=== PATIENT | female | born 1945 | race Hispanic/Latino ===

== ENCOUNTER 2017-10-25 10:55 | Outpatient (CLI) | payer MEDICARE, OTHER ==
--- NOTE | 2017-10-25 13:46 | ULT ---
VENOUS DOPPLER ULTRASOUND OF THE LEFT LOWER EXTREMITY: Date: 10/25/17 HISTORY: Pain in the left lower extremity, left leg, left knee. TECHNIQUE: Torre scale ultrasound with color flow and spectral Doppler imaging of the deep venous systems of the left lower extremity was performed. FINDINGS: There is good flow, compression, and augmentation noted in the left common femoral, femoral, deep fem oral, popliteal, posterior tibial, and greater saphenous veins. IMPRESSION: No evidence of deep venous thrombosis in the left lower extremity. POS: C
== END 2017-10-25 10:56 | disposition home or self-care (01) ==
LOC: ULT 10:55
PROVIDERS: ATTEND Family Medicine
DX: M79.605 Pain in left leg (principal)

== ENCOUNTER 2017-12-14 11:54 | Outpatient (CLI) | payer MEDICARE, OTHER ==
--- NOTE | 2017-12-14 13:02 | RAD ---
RIGHT HIP RADIOGRAPHS TWO VIEWS: 12/14/2017 PROVIDED CLINICAL HISTORY: Chronic right hip pain. FINDINGS: There is no evidence for fracture or other acute osseous abnormality. There is mild superior right h ip joint space narrowing with periarticular osteophyte formation. Alignment appears anatomic. IMPRESSION: Degenerative arthrosis of the right hip. POS: REBECCA
--- NOTE | 2017-12-14 14:11 | RAD ---
LEFT KNEE RADIOGRAPHS 4 VIEWS: DATE: 12/14/17. PROVIDED CLINICAL HISTORY: Chronic left knee pain. FINDINGS: There is no evidence for a fracture or other acute osseous abnormality. Alignment appears anatomic. Joint spaces appear preserved. Knee joint capsular distention is suspected on the lateral view and may reflect effusion. IMPRESSION: 1. No evidence for an acute osseous abnormality or significant arthropathy. 2. Knee joint effusion is suspected. If there is concern for internal derangement, consider MRI. POS: BRENDAN
== END 2017-12-14 11:55 | disposition home or self-care (01) ==
LOC: SCSRAD 11:54
PROVIDERS: ATTEND Family Medicine
DX: M25.551 Pain in right hip (principal); M16.11 Unilateral primary osteoarthritis, right hip

== ENCOUNTER 2017-12-28 15:11 | Outpatient (CLI) | payer MEDICARE | END 2017-12-28 15:12 | disposition home or self-care (01) | LOC: BICMAMMO 15:11 | PROVIDERS: ATTEND Family Medicine | DX: Z12.31 Encounter for screening mammogram for malignant neoplasm of breast (principal) | CPT/HCPCS: 77063; 77067 ==

== ENCOUNTER 2019-05-26 14:19 | Outpatient (CLI) | payer MEDICARE ==
--- NOTE | 2019-05-26 14:57 | MMO ---
Bilateral MAMMO Bilat Screen [facility]. CLINICAL HISTORY: Patient is 73 years old and is seen for screening. The patient has no family history of breast cancer. The patient has no personal history of cancer. VIEWS: The views performed were: bilateral craniocaudal with tomosynthesis and bilateral mediolateral oblique with tomosynthesis. FILMS COMPARED: The present examination has been compared to prior imaging studies performed at [facility] on 12/28/2017, and at [facility] on 03/08/2010, 01/23/2013 and 10/20/2014. MAMMOGRAM FINDINGS: There are scattered fibroglandular densities. There are stable benign appearing calcifications seen in both breasts. There are also vascular calcifications. There are no suspicious masses, suspicious calcifications, or new areas of architectural distortion. IMPRESSION: THERE IS NO MAMMOGRAPHIC EVIDENCE OF MALIGNANCY. A ROUTINE FOLLOW-UP MAMMOGRAM IN 1 YEAR IS RECOMMENDED. THE RESULTS OF THIS EXAM WERE SENT TO THE PATIENT. ACR BI-RADS Category 2 - Benign finding MAMMOGRAPHY NOTE: 1. A negative mammogram report should not delay a biopsy if a dominant of clinically suspicious mass is present. 2. Approximately 10% to 15% of breast cancers are not detected by mammography. 3. Adenosis and dense breasts may obscure an underlying neoplasm.
== END 2019-05-26 14:20 | disposition home or self-care (01) ==
LOC: BICMAMMO 14:19
PROVIDERS: ATTEND Family Medicine
DX: Z12.31 Encounter for screening mammogram for malignant neoplasm of breast (principal)
CPT/HCPCS: 77063; 77067

== ENCOUNTER 2020-07-27 12:29 | Outpatient (CLI) | payer MEDICARE ==
--- NOTE | 2020-07-27 14:14 | MMO ---
Bilateral MAMMO Bilat Screen [facility]. CLINICAL HISTORY: Patient is 75 years old and is seen for screening. The patient has no family history of breast cancer. The patient has no personal history of cancer. VIEWS: The views performed were: bilateral craniocaudal with tomosynthesis and bilateral mediolateral oblique with tomosynthesis. FILMS COMPARED: The present examination has been compared to prior imaging studies performed at [facility] on 12/28/2017 and 05/26/2019, and at [facility] on 01/23/2013 and 10/20/2014. This study has been interpreted with the assistance of computer-aided detection. MAMMOGRAM FINDINGS: There are scattered fibroglandular densities. Benign calcifications are noted bilaterally. There are no suspicious masses, suspicious calcifications, or new areas of architectural distortion. IMPRESSION: THERE IS NO MAMMOGRAPHIC EVIDENCE OF MALIGNANCY. A ROUTINE FOLLOW-UP MAMMOGRAM IN 1 YEAR IS RECOMMENDED. THE RESULTS OF THIS EXAM WERE SENT TO THE PATIENT. ACR BI-RADS Category 2 - Benign finding MAMMOGRAPHY NOTE: 1. A negative mammogram report should not delay a biopsy if a dominant of clinically suspicious mass is present. 2. Approximately 10% to 15% of breast cancers are not detected by mammography. 3. Adenosis and dense breasts may obscure an underlying neoplasm. Reported by: MONET JACOME MD Electonically Signed: [id number]
== END 2020-07-27 12:30 | disposition home or self-care (01) ==
LOC: BICMAMMO 12:29
PROVIDERS: ATTEND Family Medicine
DX: Z12.31 Encounter for screening mammogram for malignant neoplasm of breast (principal)
CPT/HCPCS: 77063; 77067

== ENCOUNTER 2022-12-13 15:39 | Outpatient (CLI) | payer MEDICARE | END 2022-12-13 15:40 | disposition home or self-care (01) | LOC: BICRAD 15:39 | PROVIDERS: ATTEND Physical Therapist | DX: M25.551 Pain in right hip (principal); M16.11 Unilateral primary osteoarthritis, right hip; R26.89 Other abnormalities of gait and mobility ==

== ENCOUNTER 2023-02-05 14:32 | Outpatient (CLI) | payer MEDICARE | END 2023-02-05 14:33 | disposition home or self-care (01) | LOC: BICMAMMO 14:32 | PROVIDERS: ATTEND Family Medicine | DX: Z12.31 Encounter for screening mammogram for malignant neoplasm of breast (principal) | CPT/HCPCS: 77063; 77067 ==